=== PATIENT | female | born 1995 | race Caucasian/White ===

== ENCOUNTER → 2017-06-09 | Outpatient (CLI) | payer BC ==
[~2017-06-09] MED LIST: CLARITIN10 MG PO; GILDESS1 EACH PO; IBUPROFEN 400400 M1 PO; PREDNISONE 5 MG5 MG PO; PREDNISONE50 MG PO; PROAIR HFA8.5 GM IH; SINGULAIR 10 MG10 M1 PO; VICODIN 5-5001 EACH PO; VYVANSE20 MG PO
== END ==
LOC: RAD 10:49
DX: M25.532 Pain in left wrist (principal)